=== PATIENT | male | born 1955 | race Caucasian/White ===

== ENCOUNTER 2019-01-14 05:11 | Emergency (ER) | payer MEDICAID, OTHER ==
[2019-01-14 05:18] VITALS: BMI 32.3
--- NOTE | 2019-01-14 05:29 | ED PDOC ---
Arrival/HPI - General Historian: Patient - History of Present Illness Narrative History of Present Illness (Text): Patient is a 63 year old male with past medical history of cholecystectomy, obesity, hypertension presenting with chief complaint of abdominal pain which began about six hours prior. Pain begins in his left lower quadrant and radiates to his back and is cramping in nature. Rates severity level +9/10. States he had a very small bowel movement today. Patient denies any changes in diet. Took advil with no relief. Denies fevers, chills, nausea, vomiting, chest pain, shortness of breath, diarrhea, dysuria. Time/Duration: 4-6 hours Symptom Onset: Sudden Symptom Course: Unchanged Quality: Cramping <Prema Zamudio - Last Filed: 01/14/19 05:49> <Karissa Dave - Last Filed: 01/14/19 06:39> - General Chief Complaint: Abdominal Pain Past Medical History - Provider Review Nursing Documentation Reviewed: Yes - Cardiac Hx Hypertension: Yes - Psychiatric Hx Substance Use: No - Surgical History Hx Cholecystectomy: Yes - Anesthesia Hx Anesthesia: Yes Hx Anesthesia Reactions: No Hx Malignant Hyperthermia: No <Prema Zamudio - Last Filed: 01/14/19 05:49> Family/Social History - Physician Review Nursing Documentation Reviewed: Yes Family/Social History: No Known Family HX Smoking Status: Never Smoked Hx Alcohol Use: No Hx Substance Use: No Hx Substance Use Treatment: No <Prema Zamudio - Last Filed: 01/14/19 05:49> Allergies/Home Meds <Prema Zamudio - Last Filed: 01/14/19 05:49> <Karissa Dave - Last Filed: 01/14/19 06:39> Allergies/Adverse Reactions: Allergies No Known Allergies Allergy (Verified 01/14/19 05:18) Home Medications: Home Meds Medication Instructions Recorded Confirmed Lisinopril [Zestril] 20 mg PO DAILY 01/14/19 01/14/19 Review of Systems - Review of Systems Respiratory: Normal Cardiovascular: Normal Gastrointestinal: Abdominal Pain. absent: Diarrhea, Nausea, Vomiting, Hematochezia Neurological: Normal <Prema Zamudio - Last Filed: 01/14/19 05:49> Physical Exam Temperature: Afebrile Blood Pressure: Normal Pulse: Regular Respiratory Rate: Normal Appearance: Positive for: Uncomfortable Pain Distress: Moderate Mental Status: Positive for: Alert and Oriented X 3 - Systems Exam Head: Present: Atraumatic, Normocephalic Pupils: Present: PERRL Extroacular Muscles: Present: EOMI Conjunctiva: Present: Normal Mouth: Present: Moist Mucous Membranes Respiratory/Chest: Present: Clear to Auscultation, Good Air Exchange. No: Respiratory Distress, Accessory Muscle Use Cardiovascular: Present: Regular Rate and Rhythm, Normal S1, S2 Abdomen: Present: Tenderness, Normal Bowel Sounds, Guarding Upper Extremity: Present: Normal Inspection Lower Extremity: Present: Normal Inspection Neurological: Present: GCS=15, CN II-XII Intact, Speech Normal Skin: Present: Warm, Dry, Normal Color Psychiatric: Present: Alert, Oriented x 3 <Prema Zamudio L - Last Filed: 01/14/19 05:49> Vital Signs Temp Pulse Resp BP Pulse Ox 01/14/19 05:23 97.3 F L 65 18 134/80 100 - Systems Exam Abdomen: Present: Tenderness (tenderness in LLQ). No: Peritoneal Signs Back: No: CVA Tenderness <Karissa Dave - Last Filed: 01/14/19 06:39> Medical Decision Making ED Course and Treatment: Impression: 63 year old male with abdominal pain Plan: - CBC, CMP, Lipase - UA - CT abd pelvis - Morphine - Reassess and disposition Prior Visits: Notes and results from previous visits were reviewed. Progress Notes: 01/14/19 05:47 Zofran and NS 1 L bolus administered for vomiting - RAD Interpretation Radiology Orders: 01/14/19 05:22 ABD & PELVIS IV CONTRAST ONLY [CT] Stat <Prema Zamudio L - Last Filed: 01/14/19 05:49> ED Course and Treatment: 01/14/19 05:50 Patient is a 63 year old male presenting to the emergency room complaining of abdominal pain. In agreement with resident note, which includes further HPI details. Patient was seen and evaluated with resident, came up with plan and treatment together. Labs significant for lipase slightly elevated at 345, BUN 26, wbc 13.9, [id number]. 07:00 Patient signed out to Dr. Branch pending CT, reassessment and dispo. - RAD Interpretation Radiology Orders: 01/14/19 05:22 ABD & PELVIS IV CONTRAST ONLY [CT] Stat - Medication Orders Current Medication Orders: Sodium Chloride (Sodium Chloride 0.9%) 1,000 mls @ 999 mls/hr IV .Q1H1M STA Stop: 01/14/19 06:46 Ondansetron HCl (Zofran Inj) 4 mg IVP STAT STA Stop: 01/14/19 05:47 Discontinued Medications Morphine Sulfate (Morphine) 4 mg IVP STAT STA Stop: 01/14/19 05:37 Last Admin: 01/14/19 05:45 Dose: 4 mg MAR Pain Assessment Document 01/14/19 05:45 AD (Rec: 01/14/19 05:[address]) Pain Reassessment Is this a pain reassessment? No Presence of Pain Presence of Pain Yes Pain Scale Used Protocol: PSCALES Pain Scale Used Numeric Location Left, Right or Bilateral Left Pain Location Body Site Abdomen Description Intensity of Pain at present 8 Pain Behavior Facial Grimacing IVP Administration Document 01/14/19 05:45 AD (Rec: 01/14/19 05:[address]) Charges for Administration # of IVP Administrations 1 <Karissa Dave - Last Filed: 01/14/19 06:39> - PA / TECHNOLOGY [employer] ARCHITECT / Resident Statement MD/DO has reviewed & agrees with the documentation as recorded. MD/DO has examined the patient and agrees with the treatment plan. - Scribe Statement The provider has reviewed the documentation as recorded by the Scribe Tila Velez All medical record entries made by the Scribe were at my direction and personally dictated by me. I have reviewed the chart and agree that the record accurately reflects my personal performance of the history, physical exam, medical decision making, and the department course for this patient. I have also personally directed, reviewed, and agree with the discharge instructions and disposition. <Karissa Dave - Last Filed: 01/14/19 06:39> Disposition/Present on Arrival - Present on Arrival Any Indicators Present on Arrival: No History of DVT/PE: No History of Uncontrolled Diabetes: No Urinary Catheter: No History of Decub. Ulcer: No History Surgical Site Infection Following: None <Prema Zamudio - Last Filed: 01/14/19 05:49> - Disposition Have Diagnosis and Disposition been Completed?: No Disposition Time: 07:00 <Karissa Dave - Last Filed: 01/14/19 06:39> - Disposition Diagnosis: Abdominal pain Patient Problems: Current Active Problems Problem Status Onset Abdominal pain Acute Condition: STABLE Forms: [employer] ([place])
[2019-01-14] MEDS ORDERED: Morphine 4 mg/ml ISec IVP STA (05:36)
[2019-01-14] MEDS ORDERED: Sodium Chloride 0.9% 1,000 ML IV STA (05:46)
[2019-01-14 05:49] LABS: URINE BILIRUBIN NEGATIVE (NEGATIVE); URINE BLOOD LARGE (NEGATIVE); URINE GLUCOSE (UA) NEGATIVE (NEGATIVE); URINE LEUKOCYTE ESTERASE TRACE Leu/uL (NEGATIVE); URINE PROTEIN 100 mg/dL (<30 mg/dL)
[2019-01-14 05:51] LABS: BASO # 0.02 K/mm3 (0.0-2.0); BASO % 0.1 % (0.0-3.0); EOS % 0.3 % (1.5-5.0); HEMOGLOBIN 15.5 g/dL (14.0-18.0); LYMPH # 1.7 (1.2-3.4); LYMPH % 12.1 % (22.0-35.0); MEAN CELL VOLUME 86.9 fl (80.0-105.0); MEAN CORPUSCULAR HEMOGLOBIN 30.3 pg (25.0-35.0); MEAN CORPUSCULAR HGB CONC 34.8 g/dl (31.0-37.0); MEAN PLATELET VOLUME 10.2 fl (7.0-11.0); MONO # 0.8 (0.1-0.6); MONO % 5.4 % (1.0-6.0); RBC 5.12 10^6/uL (3.5-6.1); RED CELL DISTRIBUTION WIDTH 12.5 % (11.5-14.5); WHITE BLOOD COUNT 13.9 10^3/uL (4.5-11.0)
[2019-01-14 05:56] LABS: URINE APPEARANCE CLOUDY (CLEAR); URINE COLOR LIGHT ORANGE (YELLOW)
[2019-01-14 05:59] LABS: ALB/GLOB RATIO 1.3 (1.1-1.8); ALBUMIN 4.5 g/dL (3.0-4.8); ALT/SGPT 40 U/L (7-56); AST/SGOT 36 U/L (17-59); BLOOD UREA NITROGEN 26 mg/dL (7-21); GFR NON-AFRICAN AMERICAN > 60; LIPASE 345 U/L (23-300)
[2019-01-14] MEDS ORDERED: Iohexol 350 MG/100 ML VIAL ONE (06:15)
[2019-01-14 06:38] LABS: URINE BACTERIA MOD /hpf; URINE RBC TNTC /hpf (0-2); URINE WBC 25 - 30 /hpf (0-6)
[2019-01-14] MEDS ORDERED: cefTRIAXone 1 gm 1 GM/100 ML BAG IVPB STA (06:42)
--- NOTE | 2019-01-14 07:10 | ED PDOC ---
Physical Exam Vital Signs Temp Pulse Resp BP Pulse Ox 01/14/19 05:23 97.3 F L 65 18 134/80 100 Medical Decision Making ED Course and Treatment: 01/14/19 07:[address] Dave with patient pending CT a/p. 01/14/19 09:30 Patient noted to feel better. CT a/p reveals non-obstructing 3.4mm calculus with moderate hydronephrosis. Patient updated on details and reports no history of fevers. He is urged to follow up with his PCP and a urologist. Scripts given wit h return protocol. Opportunity for questions given and answered. He is stable for discharge. - Lab Interpretations Lab Results: Total Bilirubin 1.6 mg/dL (0.2-1.3) H 01/14/19 05:26 AST 36 U/L (17-59) 01/14/19 05:26 ALT 40 U/L (7-56) 01/14/19 05:26 Alkaline Phosphatase 126 U/L (38-126) 01/14/19 05:26 Total Protein 7.8 g/dL (5.8-8.3) 01/14/19 05:26 Albumin 4.5 g/dL (3.0-4.8) 01/14/19 05:26 Globulin 3.3 gm/dL 01/14/19 05:26 Albumin/Globulin Ratio 1.3 (1.1-1.8) 01/14/19 05:26 Lipase 345 U/L (23-300) H 01/14/19 05:26 Urine Color Light orange (YELLOW) 01/14/19 05:26 Urine Appearance Cloudy (CLEAR) 01/14/19 05:26 Urine pH 6.0 (4.7-8.0) 01/14/19 05:26 Ur Specific [place] 1.025 (1.005-1.035) 01/14/19 05:26 Urine Protein 100 mg/dL (<30 mg/dL) H 01/14/19 05:26 Urine Glucose (UA) Negative mg/dL (NEGATIVE) 01/14/19 05:26 Urine Ketones Trace mg/dL (NEGATIVE) H 01/14/19 05:26 Urine Blood Large (NEGATIVE) H 01/14/19 05:26 Urine Nitrate Negative (NEGATIVE) 01/14/19 05:26 Urine Bilirubin Negative (NEGATIVE) 01/14/19 05:26 Urine Urobilinogen 1.0 E.U./dL (<1 E.U./dL) H 01/14/19 05:26 Ur Leukocyte Esterase Trace [place]/uL (NEGATIVE) H 01/14/19 05:26 Urine RBC Tntc /hpf (0-2) H 01/14/19 05:26 Urine WBC 25 - 30 /hpf (0-6) H 01/14/19 05:26 Ur Epithelial Cells 4 - 5 /hpf (0-5) 01/14/19 05:26 Urine Bacteria Mod /hpf (NONE) 01/14/19 05:26 - RAD Interpretation Narrative RAD Interpretations (Text): 01/14/19 09:22 CT Abdomen/Pelvis: IMPRESSION: 3.4 mm obstructing calculus distal left ureter with moderate left-sided hydronephrosis. Small amount of left-sided perinephric and periureteric infiltration and fluid. Urinary bladder wall thickening part due to incomplete distention and muscular hypertrophy; other intrinsic/invasive wall lesion not excluded. There may be linear gravel within the left posterior inferior bladder lumen. Markedly enlarged prostate gland. Findings likely due to BPH however correlation with PSA recommended. Hepatomegaly with moderate fatty infiltration. Cholecystectomy. Radiology Orders: 01/14/19 05:22 ABD & PELVIS IV CONTRAST ONLY [CT] Stat Data Entry Coordinator: Radiologist - Medication Orders Current Medication Orders: Ceftriaxone Sodium (Rocephin 1 Gram Ivpb) 1 gm in 100 mls @ 100 mls/hr IVPB STAT STA; Protocol Stop: 01/14/19 07:41 Last Admin: 01/14/19 06:52 Dose: 100 mls/hr eMAR Start Stop Document 01/14/19 06:52 AD (Rec: 01/14/19 06:53 AD [id number]) Intravenous Solution Start Date 01/14/19 Start Time 06:53 Discontinued Medications Sodium Chloride (Sodium Chloride 0.9%) 1,000 mls @ 999 mls/hr IV .Q1H1M STA Stop: 01/14/19 06:46 Last Admin: 01/14/19 05:46 Dose: 999 mls/hr eMAR Start Stop Document 01/14/19 05:46 AD (Rec: 01/14/19 05:55 AD [id number]) Intravenous Solution Start Date 01/14/19 Start Time 05:46 Ketorolac Tromethamine (Toradol) 30 mg IVP STAT STA Stop: 01/14/19 06:43 Last Admin: 01/14/19 06:53 Dose: 30 mg MAR Pain Assessment Document 01/14/19 06:53 AD (Rec: 01/14/19 06:54 AD [id number]) Pain Reassessment Is this a pain reassessment? No Presence of Pain Presence of Pain Yes Pain Scale Used Protocol: [facility] Pain Scale Used Numeric Location Pain Location Body Site Abdomen Description Intensity of Pain at present 8 Pain Behavior Facial Grimacing IVP Administration Document 01/14/19 06:53 AD (Rec: 01/14/19 06:54 AD [id number]) Charges for Administration # of IVP Administrations 1 Morphine Sulfate (Morphine) 4 mg IVP STAT STA Stop: 01/14/19 05:37 Last Admin: 01/14/19 05:45 Dose: 4 mg MAR Pain Assessment Document 01/14/19 05:45 AD (Rec: 01/14/19 05:49 AD [id number]) Pain Reassessment Is this a pain reassessment? No Presence of Pain Presence of Pain Yes Pain Scale Used Protocol: [facility] Pain Scale Used Numeric Location Left, Right or Bilateral Left Pain Location Body Site Abdomen Description Intensity of Pain at present 8 Pain Behavior Facial Grimacing IVP Administration Document 01/14/19 05:45 AD (Rec: 01/14/19 05:49 AD [id number]) Charges for Administration # of IVP Administrations 1 Ondansetron HCl (Zofran Inj) 4 mg IVP STAT STA Stop: 01/14/19 05:47 Last Admin: 01/14/19 05:46 Dose: 4 mg IVP Administration Document 01/14/19 05:46 AD (Rec: 01/14/19 05:55 AD [id number]) Charges for Administration # of IVP Administrations 1 Disposition/Present on Arrival - Present on Arrival Any Indicators Present on Arrival: No History of DVT/PE: No History of Uncontrolled Diabetes: No Urinary Catheter: No History of Decub. Ulcer: No History Surgical Site Infection Following: None - Disposition Have Diagnosis and Disposition been Completed?: Yes Diagnosis: Kidney stone Disposition: HOME/ ROUTINE Disposition Time: 09:33 Patient Plan: Discharge Patient Problems: Current Active Problems Problem Status Onset Kidney stone Acute Condition: STABLE Discharge Instructions (ExitCare): Renal Colic (DC), Urinary Obstruction (DC), How to Strain Your Urine Print Language: KAZAKH Additional Instructions: Please follow up with your PCP Please take medications as prescribed If symptoms return, come to the ED Prescriptions: Cephalexin [Keflex] 500 mg PO BID 10 Days #20 capsule Cyclobenzaprine [Flexeril] 5 mg PO Q6H #6 tab Naproxen 500 mg PO BID #10 tab Referrals: Yulisa Garcia DO [Doctor Osteopathy] - Follow up with primary Cyndie Mc MD [Medical Doctor] - Follow up with primary [facility] [Outside] - Follow up with primary Cameron Rodriguez MD [Staff Provider] - Follow up with primary Forms: [email or web address] (Jamaican), WORK NOTE
[2019-01-14 08:43] VITALS: RESP 18; O2SAT 99
--- NOTE | 2019-01-14 09:04 | CT ---
Date of service: 01/14/2019 PROCEDURE: CT Abdomen and Pelvis with contrast HISTORY: Abdominal pain COMPARISON: None. TECHNIQUE: Contrast dose: Radiation dose: Total exam DLP = 733.06 mGy-cm. This CT exam was performed using one or more of the following dose reduction techniques: Automated exposure control, adjustment of the mA and/or kV according to patient size, and/or use of iterative reconstruction technique. FINDINGS: LOWER THORAX: Mild passive/dependent type atelectasis both posterior lower lung lowe. No effusion or basilar pneumothorax. Heart size within range of normal. No significant pericardial effusion. Small hiatal hernia. LIVER: Liver is enlarged measuring over 20 cm in CC dimension. Mild to moderate diffuse fatty hepatic infiltration. No obvious hepatic mass collection or calcification. Portal and splenic veins are opacified. GALLBLADDER AND BILE DUCTS: Cholecystectomy. PANCREAS: Pancreas appears atrophic and fatty replaced. No pancreatic mass collection calcification or significant ductal dilatation. SPLEEN: Spleen exhibits normal size and attenuation pattern without mass collection or calcification there is a small splenule seen in the anterior inferior aspect of the splenic hilum ADRENALS: No adrenal lesions. KIDNEYS AND URETERS: There is mild asymmetric nephrograms, left-sided which appears delayed felt to be due to an obstructing calculus in the left distal ureter that measures approximately 3.4 mm. There are infiltration changes and a small amount of fluid seen in the left perinephric fat as well as in the left proximal periureteric fat. VASCULATURE: Unremarkable. No aortic aneurysm. No aortic atherosclerotic calcification or mural plaque present. BOWEL: Evaluation of the bowel is somewhat limited due to the lack of oral contrast material. Stomach is distended liquid food debris and small amount of air. Visualized loops of small bowel exhibit normal contour and caliber. No evidence of acute mechanical small bowel obstruction. Stool and air seen throughout the large bowel. APPENDIX: Normal appendix PERITONEUM: Unremarkable. No free fluid. No free air. Small fat containing bilateral inguinal hernias. LYMPH NODES: Unremarkable. No enlarged lymph nodes. BLADDER: Urinary bladder is incompletely which in part accounts for thick-walled appearance. Muscular hypertrophy may contribute. There is a small hyperdense linear focus within the posterior and left lateral margin of the lateral wall and/or lumen which could represent gravel. REPRODUCTIVE: Prostate gland is enlarged measuring up approximately 6.4 cm in transverse dimension. Prostatic calcifications are present. BONES: Minor multilevel degenerative spondylosis of the lower thoracic and lumbar spine. OTHER FINDINGS: None. IMPRESSION: 3.4 mm obstructing calculus distal left ureter with moderate left-sided hydronephrosis. Small amount of left-sided perinephric and periureteric infiltration and fluid.. Urinary bladder wall thickening part due to incomplete distention and muscular hypertrophy; other intrinsic/invasive wall lesion not excluded. There may be linear gravel within the left posterior inferior bladder lumen. Markedly enlarged prostate gland. Findings likely due to BPH however correlation with PSA recommended. Hepatomegaly with moderate fatty infiltration. Cholecystectomy.
--- NOTE | 2019-01-14 09:15 | CARD ---
APPROVED REPORT Date of service: 01/14/2019 EKG Measurement Heart [id number] <Conclusion> Normal sinus rhythm Normal ECG
[2019-01-14 09:44] VITALS: BP 129/84; PULSE 76; TEMP 98.2
== END 2019-01-14 09:55 | disposition home or self-care (01) ==
LOC: ED 05:11
DX: R10.9 Unspecified abdominal pain (principal); I10 Essential (primary) hypertension; E66.9 Obesity, unspecified; Z90.49 Acquired absence of other specified parts of digestive tract
CPT/HCPCS: 74177; 80053; 81001; 83690; 85025; 87040; 87086; 93005; 96374; 96375; 99284; J0696; J1885; J2270; J2405; J7030; Q9967